=== PATIENT | female | born 1970 | race Two or more races ===

== ENCOUNTER 2025-06-03 05:27 | Day surgery (SDC) | payer OTHER ==
[2025-05-31 09:54] LABS: URINE APPEARANCE Clear; URINE BILIRRUBIN Negative (NEGATIVE); URINE BLOOD Trace; URINE COLOR Yellow; URINE GLUCOSE Negative (NEGATIVE); URINE KETONE Negative (NEGATIVE); URINE LEUKOCYTE Negative; URINE NITRATE Negative; URINE PROTEIN Negative (NEGATIVE); URINE UROBILINOGEN 0.2 E.U./dl
[2025-05-31 09:56] LABS: URINE BACTERIA 359.8 uL (0.0-1933); URINE EPITHELIAL CELLS 22.9 uL (0.0-38.8); URINE WBC 20.9 uL (0.0-23.2)
[2025-05-31 09:57] LABS: BASO % 0.4 % (0.1-1.2); EOS # 0.15 (0.04-0.54); EOS % 3.2 % (0.7-7.0); LYMPH # 1.85 (1.18-3.74); LYMPH % 39.2 % (19.3-53.1); MEAN PLATELET VOLUME 8.70 fl (9.4-12.4); MONO # 0.27 (0.24-0.82); MONO % 5.7 % (4.7-12.5); NEUT # 2.43 (1.56-6.13); NEUT % 51.5 % (34.0-71.1); RED CELL DISTRIBUTION WIDTH 12.4 % (11.6-14.4)
[2025-05-31 10:06] VITALS: BP 128/84
[2025-05-31 10:06] LABS: URINE CAST 0.00 uL (0.0-1.40); URINE RBC 0.5 uL (0.0-20.8)
[2025-05-31 10:33] LABS: INR 0.94
[2025-05-31 11:27] LABS: ALT/SGPT 14.0 U/L (12-78); AST/SGOT 12.0 U/L (15-37); BILIRUBIN TOTAL 0.61 mg/dL (0.3-1.2); BUN CREA RATIO 14.0 (7.0-25.0); CREATININE SERUM 0.76 mg/dL (0.55-1.02); GFR 79.61; GLOBULINA 3.4 G/DL (2.4-3.5); GLUCOSE FASTING 102.0 mg/dL (65-100); OSMOLALITY SERUM 281.0 MOSM/KG (275-295)
[~2025-06-03] VITALS: Ht 157.5 cm; Wt 79.4 kg
[~2025-06-03 05:27] MED LIST: SYNT PO
[2025-06-03] MEDS ORDERED: TYLENOL ARTHRI650 MG PO (07:51)
[2025-06-03] MEDS ORDERED: KETO10TA2 PO (07:51)
[2025-06-03] MEDS ORDERED: MIRALAX17 GM PO (07:51)
[2025-06-03] MEDS ORDERED: TRAMADOL HCL50 MG PO (07:51)
[2025-06-03] MEDS ORDERED: CEFAZOLIN SODIUM 1,000 MG VIAL IV ONE (08:30)
[2025-06-03] MEDS ORDERED: BUPIVACAINE HCL 30 ML VIAL IV ONE (08:30)
[2025-06-03] MEDS ORDERED: MORPHINE SULFATE 4 MG/ML VIAL IV ONE ×2 (09:35→10:05)
== END 2025-06-03 12:20 | disposition home or self-care (01) ==
LOC: CIR.AMB 05:27
PROVIDERS: ATTEND Surgery
DX: K80.10 Calculus of gallbladder with chronic cholecystitis without obstruction (principal)